=== PATIENT | male | born 1940 | race Caucasian/White ===

== ENCOUNTER 2018-08-12 20:29 | Inpatient (IN) | payer OTHER ==
[~2018-08-12] VITALS: Ht 188 cm; Wt 85.0 kg
[2018-08-12] MEDS ORDERED: ASPIRIN EC81 MG PO (21:25)
[2018-08-12] MEDS ORDERED: LIPITOR40 MG PO (21:25)
[2018-08-12] MEDS ORDERED: AMARYL2 MG PO (21:25)
[2018-08-12] MEDS ORDERED: LEVOTHYROXINE175 MCG PO (21:26)
[2018-08-12] MEDS ORDERED: LOSARTAN POTAS100 MG PO (21:26)
[2018-08-12] MEDS ORDERED: GLUCOPHAGE1000 MG PO (21:27)
[2018-08-12] MEDS ORDERED: KAPSPARGO SPRI100 MG PO (21:30)
[2018-08-12] MEDS ORDERED: TIMOLOL MALEATE5 M4 OU (21:30)
[2018-08-12] MEDS ORDERED: OMEPRAZOLE20 MG PO (21:30)
--- NOTE | 2018-08-12 23:25 | NUR ---
PT ARRIVED TO THE FLOOR ACCOMPANIED BY 2 [facility] GUARDS, PT RESTING IN BED, AOX4, APPROPRIATE, IV ABX INFUSING PER EMAR WNL. PT'S VSS, PT ORIENTED TO THE ROOM, CALL LIGHT PROVIDED, ASSESSMENT COMPLETE. PT'S LS DIMINISHED ON RIGHT LOWER SIDE, CLEAR BILATERAL UPPERS, CRACKLES NOTED IN LEFT LOWER LOBE, PT STATES THAT HE HAS HAD A PRODUCTIVE COUGH, SPUTUM SAMPLE NEEDED AND DISCUSSED WITH PT, SPECIMEN CUP AT BEDSIDE. PT DENIES ANY PAIN OR SOB, PT ON 2LNC, [address] WITH BELLY CHAIN. NO NEEDS AT THIS TIME, CALL LIGHT WITHIN REACH.
--- NOTE | 2018-08-13 | NUR ---
MEDS GIVEN, PT'S CBG 318, INSULIN COVERAGE PROVIDED PER EMAR, LAB IN ROOM. IV FLUIDS INFUSING PER EMAR WNL. [facility] GUARDS REMAIN IN ROOM. PT DENIES ANY NEEDS AT THIS TIME. ICE WATER AT BEDSIDE. CALL LIGHT WITHIN REACH.
--- NOTE | 2018-08-13 01:18 | NUR ---
PT RESTING IN BED, EYES CLOSED, BREATHS EVEN, UNLABORED, NO REQUESTS AT THIS TIME, CALL LIGHT WITHIN REACH. ON 2LNC, NO C/O SOB/CP, [facility] GUARDS REMAIN AT BEDSIDE. IV FLUIDS INFUSING PER EMAR WNL.
--- NOTE | 2018-08-13 02:10 | NUR ---
PT'S BOLUS WAS COMPLETE, STARTED 2ND BOLUS. 2 OFFICERS ARE IN THE ROOM WITH THE PT. THEY DENY NEEDS AT THIS TIME. CALL LIGHT IS CLOSE.
--- NOTE | 2018-08-13 02:21 | NUR ---
DR. MANZO NOTIFIED OF PT'S CRITICAL LAB VALUE MAGNESIUM OF 0.8, NEW ORDER RECEIVED TO GIVE IV MAGNESIUM 2G X2 DOSES Q2. TORB.
--- NOTE | 2018-08-13 03:10 | NUR ---
IV MAGNESIUM INFUSING. PT DENIES ANY NEEDS AT THIS TIME, CALL LIGHT WITHIN REACH. [facility] GUARDS AT BEDSIDE.
--- NOTE | 2018-08-13 05:00 | NUR ---
NEW BAG OF IV STARTED, PT RESTING IN BED, NO NEEDS AT THIS TIME, CALL LIGHT WITHIN REACH.
--- NOTE | 2018-08-13 05:26 | NUR ---
PT AOX4, APPROPRIATE, [facility] GUARDS X2 AT BEDSIDE. 4 PO[address] [facility] RESTRAINTS IN PLACE. PT ON 2LNC, NO C/O SOB/CP, IV FLUIDS INFUSING PER EMAR WNL. PT DENIES ANY PAIN. NO NAUSEA, ACCUCHECKS AND SLIDING SCALE INSULINE PER EMAR, VSS. STILL NEED TO OBTAIN SPUTUM SAMPLE FROM PT,
--- NOTE | 2018-08-13 07:32 | NUR ---
0710: BEDSIDE REPORT RECEIVED FROM ADDIE. PT RESTING IN HIS BED WITH NO COMPLAINTS, GUARDS PRESENT AND CALL CARTER WITHIN REACH.
--- NOTE | 2018-08-13 08:04 | NUR ---
PT RESTING IN BED AND CONTINUES TO DENIE ANY PAIN OR SOB. CALL CARTER WITHIN REACH.
--- NOTE | 2018-08-13 09:49 | NUR ---
Pt resting in his bed with no complaints of pain or sob. Call quintero and guards at the bedside. [address]
--- NOTE | 2018-08-13 10:30 | NUR ---
FAXED CLINICALS TO [facility] AT [facility] AT [phone]. FAX CONFIRMATION RECEIVED 08/13/18 1019AM.
--- NOTE | 2018-08-13 12:37 | NUR ---
PT BACK TO HIS BED AFTER HAVING A SHOWER. HE STATES HE IS FEELING BETTER AFTER A SHOWER. PT NOW WORKING WITH RT AND WORKING WITH HIS IS.
--- NOTE | 2018-08-13 13:00 | NUR ---
SPOKE WITH STAFF NURSES. PATIENT HAS NO CASE MANAGEMENT NEEDS AT THIS TIME. CONSULT WILL BE PLACED IF NEEDS ARISE. DEFER ASSESSMENT AT THIS TIME.
--- NOTE | 2018-08-13 14:15 | NUR ---
PATIENT AND CORRECTIONAL OFFICERS WALKED 3 LAPS AROUND MED SURG.
--- NOTE | 2018-08-13 16:08 | NUR ---
PT DENIES ANY SOB OR PAIN AT THIS TIME. PT STATES HE FEELS CHILLED, HE WAS GIVEN ANOTHER BLANKET. TEMP 98.7 AT THIS TIME, PT ENCOURAGED THE USE OF HIS IS WHICH HE IS DOING AT THIS TIME.
--- NOTE | 2018-08-13 17:37 | NUR ---
Medications reconciled using MARS from [facility]
--- NOTE | 2018-08-13 18:42 | NUR ---
PATIENT WALKED 4 LAPS AROUND MED SURG. WITH CORRECTIONAL OFFICERS.
--- NOTE | 2018-08-13 18:47 | NUR ---
Pt resting in his bed having just been ambulating in the halls with the guards. He denies any pain or sob. Call quintero within reach.
--- NOTE | 2018-08-13 20:00 | NUR ---
PATIENT UP TO THE BATHROOM AND BACK INTO THE BED WITH THE HELP OF THE EXERCISE PLANNER AND 2 [facility] OFFICERS.
--- NOTE | 2018-08-13 22:13 | NUR ---
CHARGE NURSE ROUNDING NOTE: AWAKE, WATCHING TV, NO REQUESTS, NO C/O PAIN, 2 [facility] GUARDS IN ROOM. CALL LIGHT AT BEDSIDE, HEARING AID PLACED IN CONTAINER
--- NOTE | 2018-08-13 23:16 | NUR ---
PATIENT RESTING QUIETLY, 2 [facility] OFFICERS REMAIN AT BEDSIDE. PATIENT HAS NO NEEDS AT THIS TIME.
--- NOTE | 2018-08-14 01:20 | NUR ---
PATIENT RESTING QUIETLY. IV CONTINUES TO INFUSE WNL. 2 [facility] OFFICERS AT BED SIDE. PATIENT'S RESPIRATIONS REGULAR AND EVEN AT 16 AND LAYING ON LEFT SIDE. PATIENT HAS NO NEEDS AT THIS TIME.
--- NOTE | 2018-08-14 02:53 | NUR ---
PATIENT RESTING QUIETLY SUPINE. EYES CLOSED. RESPIRATIONS REGULAR AND EVEN. PATIENTIN NO DISTRESS.
--- NOTE | 2018-08-14 05:13 | NUR ---
PATIENT HAS RESTED WELL MOST OF THE NIGHT REMAINS IN BELLY CHAIN, CUFFS, AND SHACKLES. TIFFANIE DOWNS PRESENT. NO C/O PAIN AND HAS NO OTHER NEEDS AT THIS TIME.
--- NOTE | 2018-08-14 07:34 | NUR ---
0710: REPORT RECIVED FROM BECKY PICKENS.
--- NOTE | 2018-08-14 09:30 | NUR ---
PT RESTING IN HIS BED WITH NO COMPLAINTS AT THIS TIME. PT IS VERY [place] AND ONLY HAS ONE HEARING AIDE WITH HIM HE STATES THE OTHER IS AT THE [facility]. THE ONE HE HAS WITH HIM HAS A BATTERY. THE GUARDS CALL TO HAVE NEW BATTERIES AND THE OTHER AIDE TO BE SENT IN. VSS, IS USE INCOURAGED.
--- NOTE | 2018-08-14 11:08 | NUR ---
Pt denies any pain or sob, sat on room air is 91% at this time.
--- NOTE | 2018-08-14 11:08 | NUR ---
PATIENT REFUSED SHOWER TODAY BECAUSE HE TOOK A SHOWER YESTERDAY. WASHED HIS FACE THIS MORNING ALSO WALKED 5 LAPS AROUND MED SURG. CHANGED HIS BED LINENS.
[2018-08-14] MEDS ORDERED: CEFPODOXIME PR200 MG PO (12:20)
[2018-08-14] MEDS ORDERED: KAPSPARGO SPRI100 MG PO (12:20)
[2018-08-14] MEDS ORDERED: JANUVIA50 MG PO (12:21)
[2018-08-14] MEDS ORDERED: AMARYL2 MG PO (12:21)
--- NOTE | 2018-08-14 14:12 | NUR ---
REPORT WAS CALLED TO [facility] RN AND I WAS INFORMED THAT THEY DO NOT HAVE JANUVIA ON HAND AT THE FACILITY. DR MANZO NOTIFIED AND STATES TO START IT WHEN AVAIABLE. DIRECTOR AT [facility] NOTIFIED OF THIS WELL.
== END 2018-08-14 14:35 | disposition home or self-care (01) | DRG 193 ==
LOC: ED 20:29 → MS 23:12
PROVIDERS: ADMIT Internal Medicine
DX: J13 Pneumonia due to Streptococcus pneumoniae (principal); J96.01 Acute respiratory failure with hypoxia; G93.41 Metabolic encephalopathy; E11.65 Type 2 diabetes mellitus with hyperglycemia; K21.9 Gastro-esophageal reflux disease without esophagitis; E83.42 Hypomagnesemia; I10 Essential (primary) hypertension; I25.10 Atherosclerotic heart disease of native coronary artery without angina pectoris; E03.9 Hypothyroidism, unspecified; E78.5 Hyperlipidemia, unspecified; H40.9 Unspecified glaucoma; Z85.46 Personal history of malignant neoplasm of prostate; Z88.8 Allergy status to other drugs, medicaments and biological substances; Z87.891 Personal history of nicotine dependence; Z79.84 Long term (current) use of oral hypoglycemic drugs; Z79.82 Long term (current) use of aspirin; Z79.899 Other long term (current) drug therapy
CPT/HCPCS: 36415; 71045; 80048; 80053; 83036; 83605; 83735; 85025; 87502; 94668; 94760; 96361; 96365; 96375; 99291; 99292; J0456; J0696; J1650; J1815; J2405; J3475; J7040; J7060; J7120